=== PATIENT | male | born 1975 | race Caucasian/White ===

== ENCOUNTER 2016-06-09 16:34 | Emergency (ER) | payer BC, OTHER ==
[~2016-06-09] VITALS: Ht 172.7 cm; Wt 87.3 kg
[~2016-06-09 16:34] MED LIST: ALBU1AER9 INH; CLBPO15 TOP; CLON1TAB3 PO; HEROIN
[2016-06-09 16:44] VITALS: TEMP 36.4; Ht 172.7 cm; Wt 87.3 kg
[2016-06-09] MEDS ORDERED: ALBUT/IPRATROP 3MG/0.5MG NEB 3 ML VIAL INH STA (17:26)
[2016-06-09] MEDS ORDERED: SODIUM CHLORIDE 0.9% 1000ML 1,000 ML IV STA ×2 (17:26→20:01)
[2016-06-09] MEDS ORDERED: SODIUM CHLORIDE 0.9% 1000ML 500 ML IV STA (17:26)
--- NOTE | 2016-06-09 17:37 | EMERGENCY ROOM VISIT NOTE ---
History Report prepared by Robson: Isis Phillips Under the Supervision of: Dr. Gaston Conrad M.D. First contact with patient: 17:19 Chief Complaint: SYNCOPE Stated Complaint: LUNG INFECTION, SWEATING, CONFUSION, BLACK OUTS Nursing Triage Summary: Pt states, "I passed out today at 1300, woke up with sweats. I know I have a lung infection. I am coughing up yellow and my sinuses. I have tons of fatigue and have had confusion. It's been getting progressively worse. I have a lot of neuropathic pain. I have seen Dr. Plascencia about spinal issues, but the insurance denied the MRI. The infection my body has is spreading to my blood." History of Present Illness The patient is a 40 year old male who presents to the Emergency Room with complaints of a persistent, productive cough for the past week. He currently rates his discomfort as a 7/10 in severity. The patient states that he thought he developed the cold that was going around approximately one week ago. He states that over the past four days his symptoms have progressively worsened. He additionally associates increased fatigue and diaphoresis. The patient notes that around 1300 today he had a syncopal episode and states that he was very confused after the event. He denies any report of seizure like activity after the episode and denies any fall. The patient denies any recorded fever. He notes that he has had pneumonia in the past. The patient notes a history of hepatitis C and asthma. He states that two weeks ago he was placed on Prednisone for spinal problems by Dr. Robison--this was prescribed for his neck pain. He notes that he developed a rash after starting the Prednisone. The patient notes that he is currently on amoxicillin--started 3 days ago. Source of History: patient Onset: past week Position: other (global) Symptom Intensity: 7/10 Quality: other (cough) Timing: other (persistent) Associated Symptoms: + diaphoresis, + fatigue, No fevers Note: Associated Symptoms: confusion, syncopal episode Review of Systems See HPI for pertinent positives & negatives. A total of 10 systems reviewed and were otherwise negative. Past Medical & Surgical Medical Problems: (1) Anemia Nos (2) Anxiety (3) Asthma, Unspecified (4) Depressed (5) Hodgkin's lymphoma (6) Impetigo Surgical Problems: (1) S/P ACL surgery Family History Cancer Diabetes mellitus Social History Smoking Status: Current Every Day Smoker Alcohol Use: none Drug Use: heroin Marital Status: in relationship Housing Status: lives with significant other Occupation Status: employed Current/Historical Medications Scheduled Amoxicillin (Amoxil), 500 MG PO TID Doxycycline Hyclate (Vibramycin), 100 MG PO BID Gabapentin (Gabapentin), 600 MG PO TID Scheduled PRN [Proair], 2 PUFF INH Q4 PRN for Shortness of Breath Allergies Coded Allergies: Grass (Verified Allergy, Intermediate, SNEEZING, RUNNY NOSE, ITCHY EYES, 04/08/16) Horse Allergy (Verified Allergy, Unknown, UNKNOWN, 04/08/16) ALLERGY TO HORSE HAIR Molds and Smuts (Verified Allergy, Unknown, UNKNOWN, 04/08/16) Physical Exam Vital Signs Date Time Temp Pulse Resp B/P Pulse Ox O2 Delivery O2 Flow Rate FiO2 06/09/16 22:03 80 18 104/59 97 06/09/16 21:05 83 16 102/63 97 Room Air 06/09/16 20:00 86 16 99/70 96 Room Air 06/09/16 19:04 92 16 108/67 95 Room Air 06/09/16 18:33 90 06/09/16 18:30 95 18 106/70 100 Nebulizer 06/09/16 16:44 36.4 101 18 113/79 98 Room Air Physical Exam GENERAL: Patient is in no acute distress. HEENT: No acute trauma, normocephalic atraumatic, mucous membranes moist, no nasal congestion, no scleral icterus. NECK: No stridor, no adenopathy, no meningismus, trachea is midline. LUNGS: Scattered wheezes bilaterally, mostly on the right. Breath sounds are equal but somewhat diminished bilaterally. No rhonchi or respiratory distress. HEART: Without murmurs gallops or rubs, regular rate and rhythm. ABDOMEN: Soft, nontender, bowel sounds positive, no hernias, no peritonitis. EXTREMITIES: No cyanosis or edema, full range of motion of all the joints without pain or difficulty, no signs for acute trauma. NEUROLOGIC: Oriented x 3, no acute motor or sensory deficits, no focal weakness. SKIN: No jaundice, no diaphoresis. Medical Decision & Procedures ER Provider Diagnostic Interpretation: X ray results and stated below per my interpretation and radiologist interpretation. Other radiology results and stated below per my review and radiologist interpretation: CT SCAN OF THE BRAIN WITHOUT IV CONTRAST CLINICAL HISTORY: Fall. Change in mental status. COMPARISON STUDY: CT of the brain dated 04/02/2016. TECHNIQUE: Unenhanced axial CT scan of the brain is performed from the vertex to the skull base. Automated dose control exposure was utilized. CT DOSE: Reported separately under the concurrently performed CT scan of the cervical spine. FINDINGS: Brain parenchyma: The brain parenchyma is normal in appearance. There is no hemorrhage, mass effect, or evidence of acute territorial ischemia by CT criteria. Lucas-white matter is preserved. No extra-axial fluid collection is seen. Ventricles, sulci, cisterns: Normal in configuration. Intracranial vasculature: Mild mucosal thickening is seen within the right frontal sinus and the ethmoid sinuses. The remaining visualized intracranial vasculature at the skull base is normal in appearance. Calvarium: There is no depressed calvarial fracture. Sinuses and mastoids: The visualized paranasal sinuses are clear. The mastoid air cells are well pneumatized. Orbits: The bony orbits are grossly intact. IMPRESSION: No acute intracranial abnormality. Electronically signed by: Gaston Dyer M.D. 06/09/2016 7:02 PM Dictated Date/Time: 06/09/2016 7:00 PM SINGLE VIEW CHEST CLINICAL HISTORY: Fever. Sepsis. FINDINGS: 2 AP, portable, upright chest radiographs are compared to study dated 03/08/2016. Correlation is made with chest CT dated 03/24/2016. The examination is degraded by portable technique and patient rotation. The cardiomediastinal silhouette is unremarkable. Mild diffuse interstitial thickening is noted. No airspace consolidation or large pleural effusion is identified. No pneumothorax is seen. The bony thorax is grossly intact. IMPRESSION: There is diffuse interstitial thickening suggesting an infectious/inflammatory pneumonitis. No lobar consolidation or pleural effusion is seen. Electronically signed by: Gaston Dyer M.D. 06/09/2016 6:15 PM Dictated Date/Time: 06/09/2016 6:[address] SCAN OF THE CERVICAL SPINE CLINICAL HISTORY: Fall. Neck pain. COMPARISON STUDY: CT scan of cervical spine dated 04/02/2016. TECHNIQUE: CT scan of the cervical spine is performed from the skull base to the upper thoracic spine. Images are reviewed in the axial, sagittal, and coronal planes. IV contrast was not administered for this examination. CT DOSE: 998.39 mGy.cm FINDINGS: Skeletal structures: The skeletal structures are well mineralized. There is no evidence of fracture or subluxation involving the cervical spine. Vertebral body height and alignment are maintained. There is straightening of the cervical lordosis with mild reversal centered at C5. The odontoid process and lateral masses are intact. The atlantoaxial articulation is preserved. The spinous processes appear intact. Small anterior osteophytes are seen at C5-C6. Intervertebral discs: There is moderate degenerative disc space narrowing at C5-C6. The remaining disc spaces appear maintained. Central canal: A posterior disc osteophyte complex at C5-C6 may contribute to mild acquired compromise of the central canal. Soft tissues: The prevertebral and paraspinous soft tissues are within normal limits. Calvarium: The visualized calvarium at the skull base appears intact. Brain parenchyma: Partially visualized brain parenchyma the skull base is within normal limits. Sinuses and mastoids: The visualized paranasal sinuses are clear. The mastoid air cells are well pneumatized. Lung apices: Clear as visualized. IMPRESSION: There is no evidence of fracture or subluxation involving the cervical spine. Electronically signed by: Gaston Dyer M.D. 06/09/2016 7:04 PM Dictated Date/Time: 06/09/2016 6:59 PM Laboratory Results 06/09/16 18:05 Red Blood Count 5.70, Mean Corpuscular Volume 85.6, Mean Corpuscular Hemoglobin 28.9, Mean Corpuscular Hemoglobin Concent 33.8, Mean Platelet Volume 8.9, Neutrophils (%) (Auto) 68.6, Lymphocytes (%) (Auto) 21.1, Monocytes (%) (Auto) 8.5, Eosinophils (%) (Auto) 1.1, Basophils (%) (Auto) 0.3, Neutrophils # (Auto) 15.05, Lymphocytes # (Auto) 4.61, Monocytes # (Auto) 1.85, Eosinophils # (Auto) 0.23, Basophils # (Auto) 0.06 06/09/16 18:05 Test 06/09/16 18:00 06/09/16 18:05 06/09/16 18:36 06/09/16 19:25 Urine Color DK YELLOW Urine Appearance CLEAR (CLEAR) Urine pH 6.0 (4.5-7.5) Urine Specific [place] 1.024 (1.000-1.030) Urine Protein 1+ (NEG) Urine Glucose (UA) NEG (NEG) Urine Ketones TRACE (NEG) Urine Occult Blood NEG (NEG) Urine Nitrite NEG (NEG) Urine Bilirubin NEG (NEG) Urine Urobilinogen NEG (NEG) Urine Leukocyte Esterase NEG (NEG) Urine WBC (Auto) 5-10 /hpf (0-5) Urine RBC (Auto) 0-4 /hpf (0-4) Urine Hyaline Casts (Auto) 5-10 /lpf (0-5) Urine Epithelial Cells (Auto) >30 /lpf (0-5) Urine Bacteria (Auto) NEG (NEG) Urine Renal Epithelial Cells /lpf (0-5) Urine Pathogenic Casts See comments /lpf (0) White Blood Count 21.88 K/uL (4.8-10.8) Red Blood Count 5.70 M/uL (4.7-6.1) Hemoglobin 16.5 g/dL (14.0-18.0) Hematocrit 48.8 % (42-52) Mean Corpuscular Volume 85.6 fL (80-100) Mean Corpuscular Hemoglobin 28.9 pg (25-34) Mean Corpuscular Hemoglobin Concent 33.8 g/dl (32-36) Platelet Count 284 K/uL (130-400) Mean Platelet Volume 8.9 fL (7.4-10.4) Neutrophils (%) (Auto) 68.6 % Lymphocytes (%) (Auto) 21.1 % Monocytes (%) (Auto) 8.5 % Eosinophils (%) (Auto) 1.1 % Basophils (%) (Auto) 0.3 % Neutrophils # (Auto) 15.05 K/uL (1.4-6.5) Lymphocytes # (Auto) 4.61 K/uL (1.2-3.4) Monocytes # (Auto) 1.85 K/uL (0.11-0.59) Eosinophils # (Auto) 0.23 K/uL (0-0.5) Basophils # (Auto) 0.06 K/uL (0-0.2) RDW Standard Deviation 52.6 fL (36.4-46.3) RDW Coefficient of Variation 16.8 % (11.5-14.5) Immature Granulocyte % (Auto) 0.4 % Immature Granulocyte # (Auto) 0.08 K/uL (0.00-0.02) Erythrocyte Sedimentation Rate 57 mm/hr (0-14) Anion Gap 12.0 mmol/L (3-11) Est Creatinine Clear Calc Drug Dose 67.2 ml/min Estimated GFR () 62.4 Estimated GFR (Non- 53.9 BUN/Creatinine Ratio 11.8 (10-20) Calcium Level 8.8 mg/dl (8.5-10.1) Total Bilirubin 0.4 mg/dl (0.2-1) Aspartate Amino Transf (AST/SGOT) 15 U/L (15-37) Alanine Aminotransferase (ALT/SGPT) 29 U/L (12-78) Alkaline Phosphatase 70 U/L (45-117) Troponin I < 0.015 ng/ml (0-0.045) Total Protein 9.0 gm/dl (6.4-8.2) Albumin 4.0 gm/dl (3.4-5.0) Globulin 5.0 gm/dl (2.5-4.0) Albumin/Globulin Ratio 0.8 (0.9-2) Thyroid Stimulating Hormone (TSH) 9.120 uIu/ml (0.300-4.500) Free Thyroxine 1.35 ng/dl (0.80-1.60) Influenza Type A Antigen Neg for Influ A (NEG) Influenza Type B Antigen Neg for Influ B (NEG) Bedside Lactic Acid Venous 1.17 mmol/L (0.90-1.70) Laboratory results reviewed by me. Medications Administered Medications (Trade) Dose Ordered Sig/Yareli Route Start Time Stop Time Status Last Admin Dose Admin Sodium Chloride 500 ml @ 999 mls/hr Q31M STAT IV 06/09/16 17:26 06/09/16 17:56 DC 06/09/16 18:28 999 MLS/HR Sodium Chloride (Nss 1000ml) 1,000 ml @ 200 mls/hr Q5H STAT IV 06/09/16 17:26 06/09/16 22:23 DC 06/09/16 18:28 200 MLS/HR Albuterol/ Ipratropium 3 ml 3 ml NOW STAT INH 06/09/16 17:26 06/09/16 17:31 DC 06/09/16 18:27 3 ML Sodium Chloride 500 ml @ 999 mls/hr Q31M STAT IV 06/09/16 19:05 06/09/16 19:35 DC 06/09/16 19:16 999 MLS/HR Sodium Chloride (Nss 1000ml) 1,000 ml @ 999 mls/hr Q1H1M STAT IV 06/09/16 20:01 06/09/16 21:01 DC 06/09/16 20:10 999 MLS/HR Ceftriaxone Sodium (Rocephin Inj) 1 gm NOW STAT IV 06/09/16 20:01 06/09/16 20:03 DC 06/09/16 20:10 1 GM Doxycycline Hyclate (Vibramycin Cap) 100 mg ONE ONCE PO 06/09/16 20:15 06/09/16 20:16 DC 06/09/16 20:10 100 MG ECG Indication: SOB/dyspnea Rate (beats per minute): 95 Rhythm: normal sinus Findings: no acute ischemic change, no ectopy ED Course 1719: The patient was evaluated in room B4B. A complete history and physical exam was performed. 1725: Ordered Duoneb 3 ml INH, Sodium Chloride 1000 ml @ 200 mls/hr IV, Sodium Chloride 500 ml @ 999 mls/hr IV. 1904: Ordered Sodium Chloride 500 ml @ 999 mls/hr IV. 1953: I reevaluated the patient and he is feeling better. I discussed the exam findings and I discussed the treatment plan. He is going to receive more IV fluids and an antibiotic and will be ready to go home after. 2000: Ordered Rocephin Inj 1 gm IV, Sodium Chloride 1000 ml @ 999 mls/hr IV. 2015: Ordered Vibramycin Cap 100 mg PO. Medical Decision The patient is a 40 year old male who presents to the ED with complaints of a persistent productive cough. Differential diagnoses considered include influenza, pneumonia, bronchitis, anemia, electrolyte imbalance, renal failure, dysrhythmia, dehydration, intracranial bleed, thyroid disorder. There is a significant leukocytosis at 21,000, this is likely consistent with infection and his recent steroid use. No worrisome anemia. Blood cultures have been ordered and are pending. Renal panel testing shows some dehydration and some mild acute renal insufficiency. No significant electrolyte abnormality requiring emergent correction. There was no hepatitis. The patient 's TSH was slightly high, the T4 level though was normal. Urinalysis shows dehydration, no obvious infection. Brain CT shows no acute bleed or mass effect. C-spine CT shows some arthritis, no acute fracture. Chest film does not show focal pneumonia but there was some diffuse congestion noted. No cardiomegaly or pneumothorax. EKG shows a sinus rhythm, no acute ischemia. Cardiac enzyme testing times one is not consistent with acute cardiac injury. Lactic acid level is not elevated making sepsis less likely. Influenza testing was negative. The patient received over 2 L of IV saline for hydration. He was given a DuoNeb , IV ceftriaxone and oral doxycycline. The patient is doing well, he feels markedly better, he does want to be discharged home if at all possible. He will be discharged on doxycycline twice a day for 10 days. He will use his albuterol MDI frequently for the bronchospasm, rest, hydration, Tylenol were suggested. He will see his doctor in follow-up and has agreed to return here for worsening breathing or if not improving. I do think he has pneumonia. Impression Primary Impression: Pneumonia Additional Impressions: Dehydration Syncope Scribe Attestation The scribe's documentation has been prepared under my direction and personally reviewed by me in its entirety. I confirm that the note above accurately reflects all work, treatment, procedures, and medical decision making performed by me. Departure Information Dispostion Home / Self-Care Prescriptions Doxycycline Hyclate (VIBRAMYCIN) 100 Mg Cap 100 MG PO BID for 10 Days, #20 CAP Prov: Gaston Conrad M.D. 06/09/16 Referrals Magdiel Cintron M.D. (PCP) Patient Instructions My [facility] Additional Instructions albuterol inhaler 3 puffs every 4 hours fluids rest tylenol for fever and aches stop the amoxicillin doxycycline 2x per day for 10 days follow with papo kim--call in the am for an appt return if feeling worse or if not improving as we discussed Problem Qualifiers
--- NOTE | 2016-06-09 18:16 | DIAGNOSTIC IMAGING REPORT ---
SINGLE VIEW CHEST CLINICAL HISTORY: Fever. Sepsis. FINDINGS: 2 AP, portable, upright chest radiographs are compared to study dated 03/08/2016. Correlation is made with chest CT dated 03/24/2016. The examination is degraded by portable technique and patient rotation. The cardiomediastinal silhouette is unremarkable. Mild diffuse interstitial thickening is noted. No airspace consolidation or large pleural effusion is identified. No pneumothorax is seen. The bony thorax is grossly intact. IMPRESSION: There is diffuse interstitial thickening suggesting an infectious/inflammatory pneumonitis. No lobar consolidation or pleural effusion is seen. Electronically signed by: Gaston Dyer M.D. 06/09/2016 6:15 PM Dictated Date/Time: 06/09/2016 6:13 PM
[2016-06-09 18:24] LABS: BASO % 0.3 %; BASO ABS # 0.06 K/uL (0-0.2); COMPLETE YES; EOS % 1.1 %; HEMATOCRIT 48.8 % (42-52); IG% 0.4 %; LYMPH % 21.1 %; LYMPH ABS # 4.61 K/uL (1.2-3.4); MEAN CELL VOLUME 85.6 fL (80-100); MEAN CORPUSCULAR HEMOGLOBIN 28.9 pg (25-34); MEAN CORPUSCULAR HGB CONC 33.8 g/dl (32-36); MEAN PLATELET VOLUME 8.9 fL (7.4-10.4); MONO % 8.5 %; NEUT % 68.6 %; PLATELET COUNT 284 K/uL (130-400); WHITE BLOOD COUNT 21.88 K/uL (4.8-10.8)
[2016-06-09 18:42] LABS: ALT/SGPT 29 U/L (12-78); AST/SGOT 15 U/L (15-37); BLOOD UREA NITROGEN 19 mg/dl (7-18); BUN/CREATININE RATIO 11.8 (10-20); CALCIUM 8.8 mg/dl (8.5-10.1); CARBON DIOXIDE 25 mmol/L (21-32); CHLORIDE 99 mmol/L (98-107); GLUCOSE 120 mg/dl (70-99); POTASSIUM 4.2 mmol/L (3.5-5.1); SODIUM 136 mmol/L (136-145)
[2016-06-09] MEDS ORDERED: NRN600 PO (18:43)
[2016-06-09] MEDS ORDERED: PROAIR INH (18:43)
[2016-06-09] MEDS ORDERED: AMOX500C3 PO (18:43)
[2016-06-09 18:53] LABS: ALB/GLOB RATIO 0.8 (0.9-2); ALKALINE PHOSPHATASE 70 U/L (45-117)
--- NOTE | 2016-06-09 19:03 | DIAGNOSTIC IMAGING REPORT ---
CT SCAN OF THE BRAIN WITHOUT IV CONTRAST CLINICAL HISTORY: Fall. Change in mental status. COMPARISON STUDY: CT of the brain dated 04/02/2016. TECHNIQUE: Unenhanced axial CT scan of the brain is performed from the vertex to the skull base. Automated dose control exposure was utilized. CT DOSE: Reported separately under the concurrently performed CT scan of the cervical spine. FINDINGS: Brain parenchyma: The brain parenchyma is normal in appearance. There is no hemorrhage, mass effect, or evidence of acute territorial ischemia by CT criteria. Lucas-white matter is preserved. No extra-axial fluid collection is seen. Ventricles, sulci, cisterns: Normal in configuration. Intracranial vasculature: Mild mucosal thickening is seen within the right frontal sinus and the ethmoid sinuses. The remaining visualized intracranial vasculature at the skull base is normal in appearance. Calvarium: There is no depressed calvarial fracture. Sinuses and mastoids: The visualized paranasal sinuses are clear. The mastoid air cells are well pneumatized. Orbits: The bony orbits are grossly intact. IMPRESSION: No acute intracranial abnormality. Electronically signed by: Gaston Dyer M.D. 06/09/2016 7:02 PM Dictated Date/Time: 06/09/2016 7:00 PM
[2016-06-09] MEDS ORDERED: SODIUM CHLORIDE 0.9% 500ML 500 ML IV STA (19:05)
--- NOTE | 2016-06-09 19:06 | DIAGNOSTIC IMAGING REPORT ---
CT SCAN OF THE CERVICAL SPINE CLINICAL HISTORY: Fall. Neck pain. COMPARISON STUDY: CT scan of cervical spine dated 04/02/2016. TECHNIQUE: CT scan of the cervical spine is performed from the skull base to the upper thoracic spine. Images are reviewed in the axial, sagittal, and coronal planes. IV contrast was not administered for this examination. CT DOSE: 998.39 mGy.cm FINDINGS: Skeletal structures: The skeletal structures are well mineralized. There is no evidence of fracture or subluxation involving the cervical spine. Vertebral body height and alignment are maintained. There is straightening of the cervical lordosis with mild reversal centered at C5. The odontoid process and lateral masses are intact. The atlantoaxial articulation is preserved. The spinous processes appear intact. Small anterior osteophytes are seen at C5-C6. Intervertebral discs: There is moderate degenerative disc space narrowing at C5-C6. The remaining disc spaces appear maintained. Central canal: A posterior disc osteophyte complex at C5-C6 may contribute to mild acquired compromise of the central canal. Soft tissues: The prevertebral and paraspinous soft tissues are within normal limits. Calvarium: The visualized calvarium at the skull base appears intact. Brain parenchyma: Partially visualized brain parenchyma the skull base is within normal limits. Sinuses and mastoids: The visualized paranasal sinuses are clear. The mastoid air cells are well pneumatized. Lung apices: Clear as visualized. IMPRESSION: There is no evidence of fracture or subluxation involving the cervical spine. Electronically signed by: Gaston Dyer M.D. 06/09/2016 7:04 PM Dictated Date/Time: 06/09/2016 6:59 PM
[2016-06-09 19:28] LABS: URINE APPEARANCE CLEAR (CLEAR); URINE BILIRUBIN NEG (NEG); URINE COLOR DK YELLOW; URINE EPITHELIAL CELL AUTO >30 /lpf (0-5); URINE NITRITE NEG (NEG); URINE SPECIFIC GRAVITY 1.024 (1.000-1.030); UROBILINOGEN NEG (NEG); ZZUR CULT IF INDIC CLEAN CATCH NO
[2016-06-09 19:43] LABS: MANUAL MICROSCOPIC REQUIRED? NO; REVIEW REQ? YES
[2016-06-09] MEDS ORDERED: CEFTRIAXONE SOD INJ 1 GM ADDVIAL IV STA (20:01)
[2016-06-09] MEDS ORDERED: DOXYCYCLINE HYCLATE 100 MG CAP PO ONE (20:15)
[2016-06-09] MEDS ORDERED: DOXY100C PO (21:38)
[2016-06-09 22:03] VITALS: BP 104/59; PULSE 80; O2SAT 97
== END 2016-06-09 22:05 | disposition home or self-care (01) ==
LOC: C.EDB 16:35
DX: J18.9 Pneumonia, unspecified organism (principal); E86.0 Dehydration; R55 Syncope and collapse; R61 Generalized hyperhidrosis; F17.210 Nicotine dependence, cigarettes, uncomplicated

== ENCOUNTER → 2016-07-08 | Outpatient (CLI) | payer BC ==
[~2016-07-08] MED LIST changes: -ALBU1AER9 INH; +AMOX500C3 PO; +BCTROWC EXT; -CLBPO15 TOP; -CLON1TAB3 PO; -HEROIN; +NRN600 PO; +PROAIR INH
--- NOTE | 2016-07-08 18:44 | DIAGNOSTIC IMAGING REPORT ---
CHEST 2 VIEWS ROUTINE CLINICAL HISTORY: PNEUMONIA NON-HODGKIN'S LYMPHOMA COMPARISON STUDY: June 09, 2016 FINDINGS: The cardiac and mediastinal contours are normal. There is no evidence of focal pulmonary consolidation. There is no evidence of failure. No pleural effusions are visualized.[ There is subtle reticular nodularity of the mid upper lung zones. This finding remains stable to slightly improved. IMPRESSION: Stable to slightly improved reticular nodularity of the mid upper lung zones. No acute findings. Electronically signed by: Cuate Chacko M.D. 07/08/2016 6:42 PM Dictated Date/Time: 07/08/2016 6:40 PM
[2016-07-08 18:49] LABS: BASO % 0.4 %; BASO ABS # 0.05 K/uL (0-0.2); COMPLETE YES; EOS % 1.7 %; HEMATOCRIT 44.9 % (42-52); IG% 0.2 %; LYMPH % 29.8 %; LYMPH ABS # 3.81 K/uL (1.2-3.4); MEAN CELL VOLUME 86.8 fL (80-100); MEAN CORPUSCULAR HEMOGLOBIN 29.4 pg (25-34); MEAN CORPUSCULAR HGB CONC 33.9 g/dl (32-36); MEAN PLATELET VOLUME 9.2 fL (7.4-10.4); NEUT % 59.9 %; PLATELET COUNT 274 K/uL (130-400); RED BLOOD COUNT 5.17 M/uL (4.7-6.1)
[2016-07-08 18:51] LABS: ESTIMATED AVERAGE GLUCOSE 117 mg/dl; HA1C FLAG Normal (Normal)
[2016-07-08 18:58] LABS: INR 0.9 (0.9-1.1)
[2016-07-08 19:18] LABS: ALT/SGPT 23 U/L (12-78); AST/SGOT 29 U/L (15-37); BLOOD UREA NITROGEN 13 mg/dl (7-18); BUN/CREATININE RATIO 11.5 (10-20); CALCIUM 8.5 mg/dl (8.5-10.1); CARBON DIOXIDE 29 mmol/L (21-32); CHLORIDE 107 mmol/L (98-107); GLUCOSE 95 mg/dl (70-99); POTASSIUM 3.9 mmol/L (3.5-5.1); SODIUM 140 mmol/L (136-145); URIC ACID 6.8 mg/dl (2.6-7.2)
[2016-07-08 19:29] LABS: ALB/GLOB RATIO 0.9 (0.9-2); ALKALINE PHOSPHATASE 63 U/L (45-117)
[2016-07-13 07:40] LABS: HEPATITIS C RNA TMA QUAL Detected
[2016-07-13 16:26] LABS: ANTI-CENTROMERE AB <1.0 NEG AI (<1.0 NEG); ANTI-SS-A <1.0 NEG AI (<1.0 NEG); ANTI-SS-B <1.0 NEG AI (<1.0 NEG); DNA ds CRITHIDIA NEGATIVE (NEGATIVE); LIVER FIBR APOLIPOPROTEIN A-1 127 mg/dL (94-176); LIVER FIBROS ALPHA-2-MACROGLOB 137 mg/dL (106-279); LIVER FIBROSIS GGT 15 U/L (3-90); MICROSOMAL AB <1 IU/ML (<9); NECROINFLAMMATION ACT GRADE A0; NECROINFLAMMATION ACT SCORE 0.03; Sm Antibody <1.0 NEG AI (<1.0 NEG)
== END | disposition home or self-care (01) ==
LOC: C.RAD 17:31
PROVIDERS: ATTEND Physician Assistant
DX: J18.9 Pneumonia, unspecified organism (principal); S02.2XXA Fracture of nasal bones, initial encounter for closed fracture; X58.XXXA Exposure to other specified factors, initial encounter

== ENCOUNTER → 2016-07-12 | Outpatient (CLI) | payer BC ==
[2016-07-18 04:35] LABS: ANTI-CENTROMERE AB <1.0 NEG AI (<1.0 NEG); ANTI-SS-A <1.0 NEG AI (<1.0 NEG); ANTI-SS-B <1.0 NEG AI (<1.0 NEG); CARBOXY THC TO CREAT RATIO 87 NG/MG; CARBOXY THC UR GC/MS 123 NG/ML (CUTOFF=5); DNA ds CRITHIDIA NEGATIVE (NEGATIVE); HEPATITIS C VIRAL RNA BY PCR 223 IU/ML (<15); HEPATITIS C VIRAL RNA(LOG) PCR 2.35 LOG IU/ML (<1.18); LIVER FIBR APOLIPOPROTEIN A-1 138 mg/dL (94-176); LIVER FIBROS ALPHA-2-MACROGLOB 142 mg/dL (106-279); LIVER FIBROSIS GGT 14 U/L (3-90); MICROSOMAL AB 1 IU/ML (<9); NECROINFLAMMATION ACT GRADE A0; NECROINFLAMMATION ACT SCORE 0.07; Sm Antibody <1.0 NEG AI (<1.0 NEG); URCREATININE 138.3 MG/DL (>/= 20)
== END | disposition home or self-care (01) ==
LOC: C.LAB1850 13:54
PROVIDERS: ATTEND Physician Assistant
DX: S02.2XXA Fracture of nasal bones, initial encounter for closed fracture (principal); X58.XXXA Exposure to other specified factors, initial encounter

== ENCOUNTER → 2016-09-22 | Outpatient (CLI) | payer BC ==
[2016-09-22 20:07] LABS: THYROID STIMULATING HORMONE 2.35 uIu/ml (0.300-4.500)
== END ==
LOC: C.LAB 17:37
PROVIDERS: ATTEND Physician Assistant
DX: R94.6 Abnormal results of thyroid function studies (principal)

== ENCOUNTER → 2016-10-10 | Outpatient (CLI) | payer BC ==
--- NOTE | 2016-10-10 18:16 | DIAGNOSTIC IMAGING REPORT ---
CHEST 2 VIEWS ROUTINE CLINICAL HISTORY: Pneumonia. COMPARISON STUDY: Chest radiograph July 08, 2016. FINDINGS: There is no pneumothorax or pleural effusion. Cardiac size is normal. Mediastinal contours are normal. Upper lung predominant reticulonodular interstitial thickening is unchanged. There is no consolidation. Cardiac size is normal. Mediastinal contours are normal. IMPRESSION: 1. No change in upper lung predominant reticulonodular interstitial thickening. 2. No consolidation identified. Electronically signed by: Victor Manuel Tolbert M.D. 10/10/2016 6:15 PM Dictated Date/Time: 10/10/2016 6:14 PM
== END | disposition home or self-care (01) ==
LOC: C.RAD 16:11
PROVIDERS: ATTEND Physician Assistant
DX: J18.9 Pneumonia, unspecified organism (principal)

== ENCOUNTER → 2016-10-10 | Outpatient (CLI) | payer BC ==
[2016-10-10 17:19] LABS: HEMATOCRIT 45.3 % (42-52); MEAN CELL VOLUME 88.3 fL (80-100); MEAN CORPUSCULAR HEMOGLOBIN 29.6 pg (25-34); MEAN CORPUSCULAR HGB CONC 33.6 g/dl (32-36); MEAN PLATELET VOLUME 9.4 fL (7.4-10.4); PLATELET COUNT 285 K/uL (130-400); RED BLOOD COUNT 5.13 M/uL (4.7-6.1); WHITE BLOOD COUNT 11.84 K/uL (4.8-10.8)
[2016-10-10 17:35] LABS: MANUAL MICROSCOPIC REQUIRED? NO; REVIEW REQ? NO; URINE APPEARANCE CLEAR (CLEAR); URINE BILIRUBIN NEG (NEG); URINE COLOR YELLOW; URINE NITRITE NEG (NEG); URINE PH 6.5 (4.5-7.5); URINE SPECIFIC GRAVITY 1.024 (1.000-1.030); UROBILINOGEN NEG (NEG)
[2016-10-10 17:55] LABS: ALT/SGPT 73 U/L (12-78); AST/SGOT 30 U/L (15-37); BLOOD UREA NITROGEN 12 mg/dl (7-18); BUN/CREATININE RATIO 12.7 (10-20); CALCIUM 9.1 mg/dl (8.5-10.1); CARBON DIOXIDE 24 mmol/L (21-32); CHLORIDE 108 mmol/L (98-107); CREATININE 0.98 mg/dl (0.60-1.40); GLUCOSE 79 mg/dl (70-99); POTASSIUM 3.9 mmol/L (3.5-5.1); SODIUM 140 mmol/L (136-145)
[2016-10-10 18:00] LABS: BENZODIAZEPINE, URINE NEG (NEG); COCAINE,URINE NEG (NEG); PHENCYCLIDINE, URINE NEG (NEG)
[2016-10-10 18:06] LABS: ALB/GLOB RATIO 0.8 (0.9-2); ALKALINE PHOSPHATASE 63 U/L (45-117)
[2016-10-10 18:13] LABS: BASO % 0.6 %; BASO ABS # 0.07 K/uL (0-0.2); COMPLETE YES; IG% 0.2 %; LYMPH % 48.3 %; LYMPH ABS # 5.72 K/uL (1.2-3.4); MONO % 9.6 %; NEUT % 38.3 %
== END | disposition home or self-care (01) ==
LOC: C.CPL 16:16
PROVIDERS: ATTEND Psychiatry & Neurology Psychiatry
DX: J18.9 Pneumonia, unspecified organism (principal); F90.9 Attention-deficit hyperactivity disorder, unspecified type

== ENCOUNTER → 2016-11-24 | Outpatient (CLI) | payer BC ==
[~2016-11-24] MED LIST changes: +OPTIRAY 320 IV PRN
--- NOTE | 2016-11-24 15:04 | DIAGNOSTIC IMAGING REPORT ---
(CHEST) THORAX WITH CT DOSE: HISTORY: Lymphoma HODGKIN DISEASE TECHNIQUE: Multiaxial CT images of the chest were performed following the intravenous administration of contrast. A dose lowering technique was utilized adhering to the principles of ALARA. COMPARISON: 03/24/2016 FINDINGS: The lungs are clear. The mediastinal vascular structures are within normal limits. No mediastinal or hilar lymphadenopathy. No pleural effusion or pneumothorax. Limited views of the upper abdomen demonstrate a normal liver and spleen. IMPRESSION: No significant abnormality identified within the chest. Study continues to improve compared to the prior exam. The above report was generated using voice recognition software. It may contain grammatical, syntax or spelling errors. Electronically signed by: Mehrdad Schroeder M.D. 11/24/2016 3:03 PM Dictated Date/Time: 11/24/2016 3:00 PM
--- NOTE | 2016-11-24 15:08 | DIAGNOSTIC IMAGING REPORT ---
CT NECK WITH INTRAVENOUS CONTRAST HISTORY: HODGKIN DISEASE TECHNIQUE: Multiaxial CT images of the neck were performed following the use of intravenous contrast. COMPARISON STUDY: Cervical spine CT 06/09/2016. No CT 03/24/2016. FINDINGS: The visualized brain parenchyma and orbits are unremarkable. The major mucosal airway surfaces are intact. The epiglottis and prevertebral soft tissues are normal in thickness. The thyroid gland enhances normally. The lung apices are clear. No suspicious lytic or blastic osseous lesions. There are surgical clips within the base of the left neck. Paranasal sinuses and mastoid air cells are clear. The major cervical vessels enhance normally. Multiple prominent left cervical lymph nodes or possibly change in size. Dominant lymph node within the base of the left neck measures 14 x 6 mm and 12 x 8 mm. The right cervical lymph nodes are subcentimeter in short axis diameter. The parotid and submandibular glands are symmetric. IMPRESSION: No significant change in the borderline enlarged left cervical lymph nodes. No new or enlarging cervical lymph nodes identified. Electronically signed by: Leon Espinoza M.D. 11/24/2016 3:07 PM Dictated Date/Time: 11/24/2016 2:58 PM
--- NOTE | 2016-11-24 15:18 | DIAGNOSTIC IMAGING REPORT ---
CT SCAN OF THE ABDOMEN AND PELVIS WITH IV CONTRAST CLINICAL HISTORY: Hodgkin's disease. COMPARISON STUDY: Abdominal CT dated 03/24/2016. PET/CT dated 02/23/2015. TECHNIQUE: Following the IV administration of 119 cc of Optiray 320, CT scan of the abdomen and pelvis is performed from the lung bases to the proximal femora. Images are reviewed in the axial, sagittal, and coronal planes. IV contrast was administered without complication. Automated dose control exposure was utilized. The examination is degraded by streak artifact from the patient's arms which could not be elevated above the abdomen. A dose lowering technique was utilized adhering to the principles of ALARA. CT DOSE: 2130.44 mGy.cm FINDINGS: Lung bases: The heart is normal in size and without pericardial effusion. The lung bases are clear. Liver: The contrast-enhanced liver is normal in size, contour, and attenuation. There is no intrahepatic biliary ductal dilatation. The hepatic veins and portal veins are patent. Gallbladder: Unremarkable. Spleen: Normal in size and attenuation, measuring 9.4 cm in length. Pancreas: Unremarkable. Adrenal glands: Unremarkable. Kidneys: The contrast enhanced kidneys are normal in size and without hydronephrosis. The kidneys enhance symmetrically. Abdominal vasculature: The abdominal aorta is normal in course and caliber. Bowel: The small bowel and colon are normal in course and caliber. The appendix is well-visualized and normal. Peritoneum: There is no intraperitoneal free air or abdominal ascites. There is a small fat-containing umbilical hernia. Lymphadenopathy: Prominent retroperitoneal lymph nodes are similar to previous and measure up to 10 mm in short axis (left periaortic region image #173). Prominent upper abdominal lymph nodes are also similar to previous. A portacaval node on image #93 measures 11 mm in short axis. A noted in the abbey hepatis on image #101 measures 1.0 cm in short axis. No progressive lymphadenopathy is seen. There is no mesenteric, pelvic sidewall, or inguinal lymphadenopathy. Pelvic viscera: The bladder, prostate, and seminal vesicles are normal as imaged. Skeletal structures: No lytic or blastic lesions are seen. IMPRESSION: 1. No progressive lymphadenopathy is identified and there has been no significant change from 03/24/[address] or the 02/23/2015 PET examination. 2. Prominent upper abdominal and retroperitoneal lymph nodes are are indeterminant and similar to prior studies. 3. The spleen is normal in size. 4. No infectious or inflammatory findings are seen in the abdomen or pelvis. Electronically signed by: Gaston Dyer M.D. 11/24/2016 3:17 PM Dictated Date/Time: 11/24/2016 3:11 PM
[2016-11-24 16:22] LABS: HEMATOCRIT 42.4 % (42-52); MEAN CELL VOLUME 87.2 fL (80-100); MEAN CORPUSCULAR HEMOGLOBIN 30.5 pg (25-34); MEAN CORPUSCULAR HGB CONC 34.9 g/dl (32-36); MEAN PLATELET VOLUME 9.9 fL (7.4-10.4); PLATELET COUNT 229 K/uL (130-400); RED BLOOD COUNT 4.86 M/uL (4.7-6.1); WHITE BLOOD COUNT 9.62 K/uL (4.8-10.8)
[2016-11-24 16:23] LABS: BASO % 0.4 %; BASO ABS # 0.04 K/uL (0-0.2); COMPLETE YES; EOS % 2.9 %; IG% 0.4 %; LYMPH % 37.3 %; LYMPH ABS # 3.59 K/uL (1.2-3.4); MONO % 11.1 %; NEUT % 47.9 %; PLT ESTIMATE NORMAL
[2016-11-24 16:43] LABS: ALB/GLOB RATIO 0.9 (0.9-2); ALKALINE PHOSPHATASE 58 U/L (45-117); ALT/SGPT 52 U/L (12-78); AST/SGOT 33 U/L (15-37); BLOOD UREA NITROGEN 11 mg/dl (7-18); BUN/CREATININE RATIO 12.3 (10-20); CALCIUM 8.6 mg/dl (8.5-10.1); CARBON DIOXIDE 25 mmol/L (21-32); CHLORIDE 105 mmol/L (98-107); CREATININE 0.93 mg/dl (0.60-1.40); GLUCOSE 72 mg/dl (70-99); POTASSIUM 4.3 mmol/L (3.5-5.1); SODIUM 136 mmol/L (136-145)
== END | disposition home or self-care (01) ==
LOC: C.CTS 14:21
PROVIDERS: ATTEND Internal Medicine Hematology & Oncology
DX: C81.71 Other Hodgkin lymphoma, lymph nodes of head, face, and neck (principal)

== ENCOUNTER → 2016-12-02 | Outpatient (CLI) | payer BC ==
[~2016-12-02] MED LIST changes: -OPTIRAY 320 IV PRN
--- NOTE | 2016-12-02 16:27 | DIAGNOSTIC IMAGING REPORT ---
CHEST 2 VIEWS ROUTINE CLINICAL HISTORY: 41 years-old Male presenting with preoperative exam, cough, wheezing and shortness of breath. TECHNIQUE: PA and lateral views of the chest were obtained. COMPARISON: 10/10/2016. FINDINGS: Cardiomediastinal silhouette normal. Previously noted reticulonodular opacities in the upper lungs are minimally apparent. No new focal infiltrate. No pleural effusion or pneumothorax. Suggestion of mild bronchial wall thickening. Osseous structures normal. Upper abdomen normal. IMPRESSION: 1. Stable subtle upper lung predominant reticulonodular opacities. No new focal infiltrate. 2. Mild bronchial wall thickening may be present, which could suggest reactive airways disease or bronchiolitis. Electronically signed by: Magdiel Valdivia M.D. 12/02/2016 4:25 PM Dictated Date/Time: 12/02/2016 4:23 PM
== END | disposition home or self-care (01) ==
LOC: C.RAD 16:06
PROVIDERS: ATTEND Internal Medicine Hematology & Oncology
DX: C81.71 Other Hodgkin lymphoma, lymph nodes of head, face, and neck (principal)

== ENCOUNTER 2017-01-06 11:28 | Emergency (ER) | payer BC ==
[~2017-01-06] VITALS: Ht 172.7 cm; Wt 85.0 kg
[~2017-01-06 11:28] MED LIST changes: -BCTROWC EXT
[2017-01-06 11:30] VITALS: TEMP 36.4; Ht 172.7 cm; Wt 85.0 kg
[2017-01-06 14:36] LABS: BASO ABS # 0.06 K/uL (0-0.2); COMPLETE YES; EOS % 4.5 %; IG% 0.2 %; LYMPH % 34.6 %; LYMPH ABS # 2.17 K/uL (1.2-3.4); MEAN CORPUSCULAR HEMOGLOBIN 29.1 pg (25-34); MEAN CORPUSCULAR HGB CONC 33.5 g/dl (32-36); MEAN PLATELET VOLUME 9.2 fL (7.4-10.4); MONO % 16.1 %; NEUT % 43.6 %; PLATELET COUNT 199 K/uL (130-400); WHITE BLOOD COUNT 6.27 K/uL (4.8-10.8)
[2017-01-06 14:53] LABS: BUN/CREATININE RATIO 9.9 (10-20); CALCIUM 8.3 mg/dl (8.5-10.1); CREATININE 1.1 mg/dl (0.60-1.40)
[2017-01-06 14:56] LABS: ALB/GLOB RATIO 0.8 (0.9-2)
[2017-01-06 15:34] LABS: BENZODIAZEPINE, URINE NEG (NEG); COCAINE,URINE NEG (NEG); PHENCYCLIDINE, URINE NEG (NEG)
[2017-01-06 15:51] VITALS: BP 112/61; PULSE 79; O2SAT 98
[2017-01-06 15:52] LABS: MANUAL MICROSCOPIC REQUIRED? NO; REVIEW REQ? NO; URINE APPEARANCE CLEAR (CLEAR); URINE BILIRUBIN NEG (NEG); URINE COLOR DK YELLOW; URINE NITRITE NEG (NEG); URINE SPECIFIC GRAVITY 1.031 (1.000-1.030); UROBILINOGEN NEG (NEG)
[2017-01-06] MEDS ORDERED: BCTROWC EXT (16:02)
--- NOTE | 2017-01-06 16:04 | EMERGENCY ROOM VISIT NOTE ---
ED Visit Note First contact with patient: 12:49 CHIEF COMPLAINT: Infection of the face 1 week HISTORY OF PRESENT ILLNESS: Patient is a 41-year-old white male who presents emergency department for evaluation of a rash on his face that has been present for about a week. Patient reports that he flushed his teeth after eating last , 8 days ago. The following day, he developed left lower gum pain and swelling progressed to dental pain. He reported a foul, metallic taste in his mouth. He then broke out in a pustular rash on his face, primarily along his jawline. He does admit to popping and picking up the blisters. He has also shaved over them. He was seen [address] Blackwood and placed on hydroxyzine 50 mg 4 times a day and cephalexin 500 mg 4 times a day. He has not broken out and any further reasons since. He has noted intermittent hot flashes, sweats and chills. His girlfriend was worried because he felt warm this morning. He did not hit his temperature with a thermometer. He has a history of Hodgkin's lymphoma that has been in remission for 3 years. He is not presently receiving any treatment for this, but he is concerned because his "immune system is low." He wants to make sure that he is responding appropriately to therapy. He denies any other rashes elsewhere. REVIEW OF SYSTEMS: Review of systems as per HPI. All other systems reviewed were negative. 10 systems reviewed. PMH: Electronic medical records are reviewed and summarized as above/below. See Problem List. SOCIAL HISTORY: Patient lives at home. Smoker. PHYSICAL EXAM: Vital Signs: Reviewed Nurse's notes. GENERAL: Patient is a well-appearing 41-year-old white male who is awake and alert and in no acute distress. Vital signs are stable. He is afebrile. HEENT: Normocephalic, atraumatic. Pupils equal, round, reactive to light and accommodation. EOMs intact without nystagmus. Sclera are anicteric. Tympanic membranes intact, with normal landmarks. External canals are clear. Oral and nasopharynx are clear. Patient has poor dentition with multiple eroded molars. No gumline abscess is appreciated. Diffuse gingival disease noted. Mucous membranes are moist. INTEGUMENTARY: The patient has multiple scabbed over areas, primarily on the jawline, also noted on the nose. They are shallow, without ulceration, no vesicles noted. They are nontender to palpation. No overt cellulitis changes are noted. NECK: Supple without lymphadenopathy. No nuchal rigidity. HEART: Regular rate and rhythm. LUNGS: Clear to auscultation. EMERGENCY DEPARTMENT COURSE: The patient was seen and assessed him and as above. His old records are reviewed. He presents to the emergency department because he is concerned about his response to healing. He has been see by his PCP. The etiology of his lesions were unclear. He does appear to be responding however as he has not had any further breakouts, and the dental infection has cleared. The patient admittedly has been picking at, scratching, shaving over and agitating the wounds, which I suspect has impaired healing. I do question whether he may have a superimposed impetigo, and have provided him with Bactroban. At his request, CBC and CMP were collected and were unremarkable. Urinalysis was clear. Urine tox screen was positive for opioids and amphetamines. He does not have any evidence for dermatologic emergency including SJS or TEN. He was encouraged to follow-up with his primary care provider this week for recheck. Medication reconciliation: I attest that I have personally reviewed the patient' s current medication list. Blood pressure screening : Patient was found to have normal blood pressure on screening and does not require follow-up. Problem List Medical Problems: (1) Abdominal pain Status: Resolved (2) Anemia Nos Status: Chronic (3) Anxiety Status: Chronic (4) Asthma, Unspecified Status: Chronic (5) Bilateral ankle pain Status: Resolved (6) Dehydration Status: Resolved (7) Depressed Status: Chronic (8) Depression Status: Resolved (9) Depression Status: Resolved (10) Depression Status: Resolved (11) Elevated white blood cell count Status: Resolved (12) Facial injury Status: Resolved (13) Fall Status: Resolved (14) Fecal retention Status: Resolved (15) Fever Status: Resolved (16) Heroin abuse Status: Resolved (17) History of lymphoma Status: Resolved (18) History of lymphoma Status: Resolved (19) Hodgkin's lymphoma Status: Resolved (20) Hypokalemia Status: Resolved (21) Impetigo Status: Resolved (22) Methadone withdrawal Status: Resolved (23) Narcotic abuse Status: Resolved (24) Narcotic addiction Status: Resolved (25) Narcotic withdrawal Status: Resolved (26) Nasal bone fractures Status: Resolved (27) Nondisplaced dome fracture of left talus Status: Resolved (28) Pneumonia Status: Resolved (29) Syncope Status: Resolved (30) Wound dehiscence Status: Resolved Surgical Problems: (1) S/P ACL surgery Status: Resolved Current/Historical Medications Scheduled Mupirocin (Bactroban 2% Oint), 1 APPLN EXT TID Allergies Coded Allergies: Grass (Verified Allergy, Intermediate, SNEEZING, RUNNY NOSE, ITCHY EYES, ) Horse Allergy (Verified Allergy, Unknown, UNKNOWN, 01/06/17) ALLERGY TO HORSE HAIR Molds and Smuts (Verified Allergy, Unknown, UNKNOWN, 01/06/17) Vital Signs Date Time Temp Pulse Resp B/P (MAP) Pulse Ox O2 Delivery O2 Flow Rate FiO2 01/06/17 15:51 79 16 112/61 98 Room Air 01/06/17 13:43 67 15 115/72 96 Room Air 01/06/17 11:30 36.4 84 18 101/54 95 Room Air Laboratory Results 01/06/17 13:40 Red Blood Count 4.60, Mean Corpuscular Volume 87.0, Mean Corpuscular Hemoglobin 29.1, Mean Corpuscular Hemoglobin Concent 33.5, Mean Platelet Volume 9.2, Neutrophils (%) (Auto) 43.6, Lymphocytes (%) (Auto) 34.6, Monocytes (%) (Auto) 16.1, Eosinophils (%) (Auto) 4.5, Basophils (%) (Auto) 1.0, Neutrophils # (Auto ) 2.74, Lymphocytes # (Auto) 2.17, Monocytes # (Auto) 1.01, Eosinophils # (Auto ) 0.28, Basophils # (Auto) 0.06 01/06/17 13:40 Test 01/06/17 13:40 01/06/17 14:15 White Blood Count 6.27 K/uL (4.8-10.8) Red Blood Count 4.60 M/uL (4.7-6.1) Hemoglobin 13.4 g/dL (14.0-18.0) Hematocrit 40.0 % (42-52) Mean Corpuscular Volume 87.0 fL (80-100) Mean Corpuscular Hemoglobin 29.1 pg (25-34) Mean Corpuscular Hemoglobin Concent 33.5 g/dl (32-36) Platelet Count 199 K/uL (130-400) Mean Platelet Volume 9.2 fL (7.4-10.4) Neutrophils (%) (Auto) 43.6 % Lymphocytes (%) (Auto) 34.6 % Monocytes (%) (Auto) 16.1 % Eosinophils (%) (Auto) 4.5 % Basophils (%) (Auto) 1.0 % Neutrophils # (Auto) 2.74 K/uL (1.4-6.5) Lymphocytes # (Auto) 2.17 K/uL (1.2-3.4) Monocytes # (Auto) 1.01 K/uL (0.11-0.59) Eosinophils # (Auto) 0.28 K/uL (0-0.5) Basophils # (Auto) 0.06 K/uL (0-0.2) RDW Standard Deviation 43.9 fL (36.4-46.3) RDW Coefficient of Variation 13.8 % (11.5-14.5) Immature Granulocyte % (Auto) 0.2 % Immature Granulocyte # (Auto) 0.01 K/uL (0.00-0.02) Anion Gap 10.0 mmol/L (3-11) Est Creatinine Clear Calc Drug Dose 95.7 ml/min Estimated GFR () 97.5 Estimated GFR (Non- 84.1 BUN/Creatinine Ratio 9.9 (10-20) Calcium Level 8.3 mg/dl (8.5-10.1) Total Bilirubin 0.2 mg/dl (0.2-1) Aspartate Amino Transf (AST/SGOT) 25 U/L (15-37) Alanine Aminotransferase (ALT/SGPT) 25 U/L (12-78) Alkaline Phosphatase 66 U/L (45-117) Total Protein 7.0 gm/dl (6.4-8.2) Albumin 3.0 gm/dl (3.4-5.0) Globulin 4.0 gm/dl (2.5-4.0) Albumin/Globulin Ratio 0.8 (0.9-2) Urine Color DK YELLOW Urine Appearance CLEAR (CLEAR) Urine pH 5.0 (4.5-7.5) Urine Specific [place] 1.031 (1.000-1.030) Urine Protein NEG (NEG) Urine Glucose (UA) NEG (NEG) Urine Ketones NEG (NEG) Urine Occult Blood NEG (NEG) Urine Nitrite NEG (NEG) Urine Bilirubin NEG (NEG) Urine Urobilinogen NEG (NEG) Urine Leukocyte Esterase NEG (NEG) Urine Opiates Screen POS (NEG) Urine Methadone, Qualitative NEG (NEG) Urine Barbiturates NEG (NEG) Urine Phencyclidine (PCP) Level NEG (NEG) Ur Amphetamine/Methamphetamine POS (NEG) MDMA (Ecstasy) Screen NEG (NEG) Urine Benzodiazepines Screen NEG (NEG) Urine Cocaine Metabolite NEG (NEG) Urine Marijuana (THC) NEG (NEG) Departure Information Impression Primary Impression: Facial rash Prescriptions Mupirocin (Bactroban 2% Oint) 66 Appln/22 Gm Oint 1 APPLN EXT TID, #1 TUBE 1 Refill Prov: Nohemi Villa PA 01/06/17 Referrals Magdiel Cintron M.D. (PCP) Patient Instructions My [facility] Additional Instructions Finish Keflex. Apply a thin layer of Bactroban ointment to affected areas 3 times daily for the next 7-10 days. Clean gently with mild soap and water. Do not scratch, pick or shave over lesions until healed. Continue current medications. Follow up with your family physician next week for recheck. Return to the ED as needed.
[2017-01-09 09:42] LABS: COD UR NEGATIVE NG/ML (CUTOFF=50); HYDROCOD UR NEGATIVE NG/ML (CUTOFF=50); HYDROMOR UR NEGATIVE NG/ML (CUTOFF=50); MORPHINE UR 5100 NG/ML (CUTOFF=50); NORHYDROCODONE CONF UR NEGATIVE NG/ML (CUTOFF=50); OXYMORPH UR 84 NG/ML (CUTOFF=50)
== END 2017-01-06 16:45 | disposition home or self-care (01) ==
LOC: C.EDB 11:29
DX: R21 Rash and other nonspecific skin eruption (principal); F41.9 Anxiety disorder, unspecified; J45.909 Unspecified asthma, uncomplicated; F32.9 Major depressive disorder, single episode, unspecified; D64.9 Anemia, unspecified; Z85.71 Personal history of Hodgkin lymphoma; Z87.81 Personal history of (healed) traumatic fracture; Z91.09 Other allergy status, other than to drugs and biological substances

== ENCOUNTER → 2017-01-17 | Outpatient (CLI) | payer BC ==
[~2017-01-17] MED LIST changes: -AMOX500C3 PO; +BCTROWC EXT; -NRN600 PO; -PROAIR INH
--- NOTE | 2017-01-17 15:29 | DIAGNOSTIC IMAGING REPORT ---
CHEST 2 VIEWS ROUTINE HISTORY: R09.89 Abnormal lung [id number] COMPARISON: Chest 12/02/2016. FINDINGS: Stable subtle reticulonodular interstitial thickening. No new focal lung consolidations. The heart is normal in size. No pleural effusions. No pneumothorax. Surgical clips are again noted within the left neck. IMPRESSION: Stable subtle reticulonodular interstitial thickening. No new focal lung consolidations. Electronically signed by: Leon Espinoza M.D. 01/17/2017 3:27 PM Dictated Date/Time: 01/17/2017 3:25 PM
== END | disposition home or self-care (01) ==
LOC: C.RAD 14:51
PROVIDERS: ATTEND Nurse Practitioner Adult Health
DX: R09.89 Other specified symptoms and signs involving the circulatory and respiratory systems (principal); R91.8 Other nonspecific abnormal finding of lung field

== ENCOUNTER 2017-06-22 17:04 | Emergency (ER) | payer BC, OTHER ==
[~2017-06-22] VITALS: Ht 172.7 cm; Wt 90.2 kg
[2017-06-22 17:09] VITALS: TEMP 36.7; Ht 172.7 cm; Wt 90.2 kg
[2017-06-22] MEDS ORDERED: XYLOCAINE 1%/SOD BICARB 20 ML VIAL INFIL STA (17:33)
[2017-06-22] MEDS ORDERED: CEPHALEXIN MONOHYDRATE 250 MG CAP PO STA (17:34)
[2017-06-22] MEDS ORDERED: SULFAMETHOXAZOLE/TRIMETHOPRIM DS 800/160MG TAB PO STA (17:34)
[2017-06-22] MEDS ORDERED: NALT380I INJ (17:54)
[2017-06-22 18:05] VITALS: BP 141/92; PULSE 75; O2SAT 98
[2017-06-22] MEDS ORDERED: CEPH500C PO (18:07)
[2017-06-22] MEDS ORDERED: SULF800T23 PO (18:07)
--- NOTE | 2017-06-22 18:10 | EMERGENCY ROOM VISIT NOTE ---
ED Visit Note First contact with patient: 17:11 CHIEF COMPLAINT: Infection of the right wrist HISTORY OF PRESENT ILLNESS: This 41-year-old male patient, significant past medical history of hepatitis C and IV drug use, presents to the emergency department approximately 1-1/2 weeks after they noticed a hard, red, tender area of the mid anterior right wrist. The patient denies any recent IV drug use. It is slowly getting larger, more painful and tender. No fever, chills, or loss of appetite. There has been no drainage from the area. There was no injury to the area preceding the infection. They rate the pain as sharp and full and 6/10. Tetanus shot is up to date. They have tried a couple doses of Keflex over 1 day without improvement. The patient is not diabetic. The patient has no history of subcutaneous abscesses. REVIEW OF SYSTEMS: A 10 system review of systems was performed with positives and pertinent negatives listed in the history of present illness. All other systems were reviewed and are negative. ALLERGIES: None MEDICATIONS: Naltrexone, Provera, multivitamin PMH: Asthma, IV drug use, hepatitis C SOCIAL HISTORY: The patient lives locally with family. He denies current drug use. He admits to smoking 1 pack of cigarettes per day. He admits to regular alcohol use. PHYSICAL EXAM: Vital Signs: Reviewed Nurse's notes, vital signs stable. GENERAL : This is a 41-year-old white male, no acute distress, non toxic in appearance, well-developed well-nourished. SKIN: There is an erythematous indurated area on the anterior right wrist which measures about 2 cm in diameter. It is fluctuant but there is no pointing or drainage. There is a zone of inflammation around it but no lymphangitis. Capillary refill less than 2 seconds. MUSCULOSKELETAL: There is moderate limitation of the range of motion of the wrist due to swelling and pain. EMERGENCY DEPARTMENT COURSE: I examined the patient. Due to the location of abscess and patient's previous history of IV drug use and hepatitis C, I do not feel comfortable performing an incision and drainage while here in the emergency department. I did discuss options with the patient including needle aspiration of the wound, and the patient was agreeable. Verbal consent was obtained to perform the procedure. After saline and Betadine cleansing and 2 mL of 1% buffered lidocaine anesthesia, the abscess was punctured with an 18- gauge needle on syringe. A small amount of purulent fluid was expressed within the syringe. A small amount of bloody, purulent material was expressed by pressure. The syringe was sent for culture. The area was cleaned with sterile saline and dressed with bacitracin and a bulky bandage. The patient tolerated the procedure well. The patient was given his first dose of Keflex and Bactrim while here in the emergency department. Discharge instructions reviewed, the patient was encouraged to follow-up outpatient with orthopedics. The patient was discharged home in stable condition. I attest that I have personally reviewed the patient's current medication list. Patient was found to have normal blood pressure on screening and does not require follow-up. Differential diagnosis includes abscess, ganglion cyst, bursitis, cyst, malignancy, and others DIAGNOSIS: Abscess of the right wrist The chart was completed utilizing [employer] Speech voice recognition software. Grammatical errors, random word insertions, pronoun errors, and incomplete sentences are an occasional consequence of this system due to software limitations, ambient noise, and hardware issues. Any formal questions or concerns about the content, text, or information contained within the body of this dictation should be directly addressed to the provider for clarification. Problem List Medical Problems: (1) Abdominal pain Status: Resolved (2) Anemia Nos Status: Chronic (3) Anxiety Status: Chronic (4) Asthma, Unspecified Status: Chronic (5) Bilateral ankle pain Status: Resolved (6) Dehydration Status: Resolved (7) Depressed Status: Chronic (8) Depression Status: Resolved (9) Depression Status: Resolved (10) Depression Status: Resolved (11) Elevated white blood cell count Status: Resolved (12) Facial injury Status: Resolved (13) Fall Status: Resolved (14) Fecal retention Status: Resolved (15) Fever Status: Resolved (16) Heroin abuse Status: Resolved (17) History of lymphoma Status: Resolved (18) History of lymphoma Status: Resolved (19) Hodgkin's lymphoma Status: Resolved (20) Hypokalemia Status: Resolved (21) Impetigo Status: Resolved (22) Methadone withdrawal Status: Resolved (23) Narcotic abuse Status: Resolved (24) Narcotic addiction Status: Resolved (25) Narcotic withdrawal Status: Resolved (26) Nasal bone fractures Status: Resolved (27) Nondisplaced dome fracture of left talus Status: Resolved (28) Pneumonia Status: Resolved (29) Syncope Status: Resolved (30) Wound dehiscence Status: Resolved Surgical Problems: (1) S/P ACL surgery Status: Resolved Current/Historical Medications Scheduled Cephalexin Monohydrate (Keflex), 500 MG PO QID Naltrexone (Vivitrol), 380 MG INJ UD Sulfa/Trimethoprim (Bactrim Ds 800MG/160MG), 1 TAB PO BID Allergies Coded Allergies: Grass (Verified Allergy, Intermediate, SNEEZING, RUNNY NOSE, ITCHY EYES, ) Horse Allergy (Verified Allergy, Unknown, UNKNOWN, 06/22/17) ALLERGY TO HORSE HAIR Molds and Smuts (Verified Allergy, Unknown, UNKNOWN, 06/22/17) Vital Signs Date Time Temp Pulse Resp B/P (MAP) Pulse Ox O2 Delivery O2 Flow Rate FiO2 06/22/17 18:05 75 17 141/92 98 Room Air 06/22/17 17:09 36.7 83 18 96 Room Air Medications Administered Medications (Trade) Dose Ordered Sig/Yareli Route Start Time Stop Time Status Last Admin Dose Admin Trimethoprim/ Sulfamethoxazole (Septra Ds 800/ 160MG Tab) 1 tab NOW STAT PO 06/22/17 17:34 06/22/17 17:36 DC 06/22/17 18:06 1 TAB Cephalexin Monohydrate (Keflex Cap) 500 mg NOW STAT PO 06/22/17 17:34 06/22/17 17:36 DC 06/22/17 18:06 500 MG Departure Information Impression Primary Impression: Abscess of right arm Dispostion Home / Self-Care Condition GOOD Prescriptions Cephalexin Monohydrate (Keflex) 500 Mg Cap 500 MG PO QID for 10 Days, #40 CAP Prov: Sangita Franco PA-C 06/22/17 Sulfa/Trimethoprim (Bactrim Ds 800MG/160MG) Tab 1 TAB PO BID for 10 Days, #20 TAB Prov: Sangita Franco PA-C 06/22/17 Referrals No Doctor, Assigned (PCP) Moncho Abreu MD Patient Instructions ED Abscess IandD, My [facility] Additional Instructions He was seen in the emergency department today for abscess of the right anterior wrist. This was drained with an 18-gauge needle. A small amount of purulent fluid was expressed, however you will need to have a consult by orthopedics for possible removal of the cyst. Cephalexin(Keflex) 500mg: Take one pill four times daily for 10 days for your skin infection. All antibiotics can cause diarrhea. If this occurs and you feel worse or it does not resolve in 1-2 days follow up with your doctor or return to the Emergency Department as this could be signs of serious underlying problems. Any medication can cause an allergic reaction, stop the pills immediately and return to the ER for rash, hives, breathing difficulties, or swelling. Trimethoprim-Sulfamethoxazole(Bactrim DS): Take one pill twice daily for 10 days for your skin infection. All antibiotics can cause diarrhea. If this occurs and you feel worse or it does not resolve in 1-2 days follow up with your doctor or return to the Emergency Department as this could be signs of serious underlying problems. Any medication can cause an allergic reaction, stop the pills immediately and return to the ER for rash, hives, breathing difficulties, or swelling. Please soak the abscess and warm water several times per day. You may perform some gentle massage to help with drainage. Culture was performed, and you will receive results in 2-3 days if antibiotics need to be adjusted. Please follow-up with orthopedics in 2-3 days for reevaluation of the abscess. Return to the emergency department for any significantly worsening redness, swelling, fevers, red streaking up the arm, systemic symptoms, or other concerns.
== END 2017-06-22 18:14 | disposition home or self-care (01) ==
LOC: C.EDB 17:06 → C.EDD 18:14
DX: L02.413 Cutaneous abscess of right upper limb (principal); D64.9 Anemia, unspecified; F41.9 Anxiety disorder, unspecified; J45.909 Unspecified asthma, uncomplicated; F32.9 Major depressive disorder, single episode, unspecified; Z85.72 Personal history of non-Hodgkin lymphomas; Z86.19 Personal history of other infectious and parasitic diseases; F19.90 Other psychoactive substance use, unspecified, uncomplicated; Z91.048 Other nonmedicinal substance allergy status

== ENCOUNTER 2017-11-18 17:19 | Emergency (ER) | payer OTHER ==
[~2017-11-18] VITALS: Ht 172.7 cm; Wt 97.4 kg
[~2017-11-18 17:19] MED LIST changes: -BCTROWC EXT; +NALT380I IM
[2017-11-18 17:23] VITALS: TEMP 36.9; Ht 172.7 cm; Wt 97.4 kg
[2017-11-18] MEDS ORDERED: ATOM60CA PO (18:14)
[2017-11-18 18:18] VITALS: BP 152/99; PULSE 103; O2SAT 96
[2017-11-18] MEDS ORDERED: PNC/500 PO (18:18)
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
== END 2017-11-18 18:20 | disposition home or self-care (01) ==
LOC: C.EDB 17:21 → C.EDA 18:20
DX: R46.89 Other symptoms and signs involving appearance and behavior (principal); F41.9 Anxiety disorder, unspecified; J45.909 Unspecified asthma, uncomplicated; F32.9 Major depressive disorder, single episode, unspecified; E87.6 Hypokalemia; F17.200 Nicotine dependence, unspecified, uncomplicated; F11.90 Opioid use, unspecified, uncomplicated

== ENCOUNTER 2019-01-09 16:53 | Observation (INO) ==
[2019-01-09] MEDS ORDERED: SODIUM CHLORIDE 0.9% 1000ML 1,000 ML IV SCH (17:15)
[2019-01-09 17:33] LABS: Basophils # (auto) 0.08 K/uL (0-0.2); Basophils % (auto) 0.6 %; Hematocrit (blood only) 49.5 % (42-52); Hemoglobin 17.4 g/dL (14.0-18.0); Immature Granulocytes # (auto) 0.04 K/uL (0.00-0.02); Immature Granulocytes % (auto) 0.3 %; Lymphocytes # (auto) 4.26 K/uL (1.2-3.4); Lymphocytes % (auto) 31.6 %; Mean Corpuscular Hemoglobin 31.7 pg (25-34); Mean Corpuscular Hgb Conc 35.2 g/dL (32-36); Mean Corpuscular Volume 90.2 fL (80-100); Mean Platelet Volume 9.2 fL (7.4-10.4); Monocytes % (auto) 12.6 %; Neutrophils # (auto) 6.99 K/uL (1.4-6.5); Neutrophils % (auto) 51.9 %; Platelet Count 282 K/uL (130-400); RDW Standard Deviation 46.5 fL (36.4-46.3); Red Blood Count 5.49 M/uL (4.7-6.1); White Blood Count 13.47 K/uL (4.8-10.8)
[2019-01-09 17:50] LABS: Albumin Level 4.3 gm/dl (3.4-5.0); BUN Creatinine Ratio 8.5 (10-20); Calcium 9.6 mg/dl (8.5-10.1); Creatinine Clr Calc Pharmacy 54.1 ml/min; Est GFR (African American) 47.2; Est GFR (Non-African American) 40.8; Magnesium 2.2 mg/dl (1.8-2.4)
[2019-01-09 17:53] LABS: Globulin 4.3 gm/dl (2.5-4.0); Total Protein 8.6 gm/dl (6.4-8.2)
--- NOTE | 2019-01-09 17:57 | XRay Report ---
SINGLE VIEW CHEST CLINICAL HISTORY: Generalized weakness. FINDINGS: An AP, portable, upright chest radiograph is compared to study dated 10/01/2018. The cardiom ediastinal silhouette is unremarkable. There is mild elevation of left hemidiaphragm and bibasilar at electasis. The lungs and pleural spaces are otherwise clear. No pneumothorax is seen. The bony thorax is grossly intact. Surgical clips are seen in the left lower neck. IMPRESSION: No active disease in the chest. Electronically signed by: Gaston Dyer M.D. 01/09/2019 5:55 PM
[2019-01-09] MEDS ORDERED: SODIUM CHLORIDE 0.9% 1000ML 1,000 ML IV ONE (18:11)
[2019-01-09] MEDS ORDERED: cefTRIAXone SODIUM 2,000 MG/70 ML BAG IV STA (18:24)
[2019-01-09] MEDS ORDERED: DIAZEPAM 5 MG/ML INJ 10ML VIAL IV STA ×2 (18:48→19:50)
[2019-01-09] MEDS ORDERED: LORazepam 1 MG/2 ML VIAL IV PRN (19:52)
--- NOTE | 2019-01-09 19:59 | Pharmacy Report ---
ED Pharmacist Progress Note - ED Pharmacist Progress Note Date of Service:: January 09, 2019 Notes:: RN came to me with multidose vial of diazepam asking if the contents of the vial needed to be discharged and a new vial taken from [id number] as pt is ordered a second dose by dr us. i advised the rn to use the same vial for this second dose rather than wasting the entire contents of this vial plus the remainder of the second vial. this is a multidose vial.
--- NOTE | 2019-01-09 20:03 | Emergency Department Note ---
Entered by Debbi Belle acting as a scribe for History of Present Illness General Chief complaint: Overdose (Intentional) Stated complaint: SEIZURE Time Seen by Provider: 01/09/19 17:00 Source: patient and family History of Present Illness Onset (ago): hour(s) 1 Location: head (Syncope) Severity: similar to prior episodes Pain Consistency: + other (Episode) Quality: + other (Syncope) Exacerbated By: + other (drugs) Associated symptoms: + diaphoresis, + syncope and + other (Prior drug use.) The patient is a 43 year old male who presents to the Emergency Department complaining of an episode of syncope starting 1 hour ago. The patients mother reports that she found the patient laying on the kitchen floor sweating. She states that she had seen the patient less than an hour before and that he was acting as if he was using drugs. She notes that the patient showed signs of using drugs yesterday as he was acting jittery and his pupils were small. She adds that the patient was released 3 weeks ago from an inpatient rehabilitation program for 60 days. The patients mother reports that the patient was in rehab for his addiction to heroin and methamphetamines. She states that the patient has no Narcan at home. The patient reports that he got out of rehab about 3 weeks ago and started using Fentanyl and methamphetamines about 1 week ago. He states that [address] [employer] he used Fentanyl. He explains that he has not used methamphetamines in the past day. The nurse reports that she found a syringe sticking out of the patients medial posterior right ankle. She also found drug paraphernalia in the patients socks. Home Medications Home Medications Medication Instructions Recorded Confirmed Type fluticasone propionate-salmeterol 2 puffs INH Q12H #12 gm 10/04/18 10/15/18 Rx 115 mcg-21 mcg/actuation HFA inhaler propranolol 40 mg tablet 40 mg PO BID #60 tab 10/04/18 10/15/18 Rx albuterol sulfate HFA 90 2 puffs INH QID #18 gm 01/07/19 Rx mcg/actuation aerosol inhaler naloxone [Narcan] 1 sprays INTNAS DIRECTED #2 ea 01/09/19 Rx Allergies Allergy/AdvReac Type Severity Reaction Status Date / Time grass pollen-perennial rye, Allergy Intermediate SNEEZING, Verified 10/15/18 22:18 standar RUNNY NOSE, ITCHY EYES Horse/Equine Containing Allergy Unknown UNKNOWN Verified 10/15/18 22:18 Products mold Allergy Unknown UNKNOWN Verified 10/15/18 22:18 Past Med/Surg History Medical History Methamphetamine use disorder, moderate, dependence (Chronic) Heroin use disorder, moderate, dependence (Chronic) IV drug user (Chronic) Viral hepatitis C without hepatic coma (Chronic) Bipolar disorder (Chronic) History of lymphoma (Chronic) Aggressive behavior (Resolved) Fecal retention (Resolved) History of lymphoma (Resolved) Hypokalemia (Resolved) Impetigo (Resolved) Nondisplaced dome fracture of left talus (Resolved) Surgical History S/P ACL reconstruction Family History Grandfather (Maternal) Diabetes Myocardial infarction Social History Preferred Language: Bahamian Visual Impairment: No Limitations Curbing Stonecutter Required: No Beliefs That Will Affect Care: None marital status: Single Current Living Situation: Family current occupational status: employed 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 and A total of 10 systems reviewed and were otherwise negative Physical Exam Vital Signs Vital Signs - 24 hr 01/09/19 16:54 01/09/19 17:10 01/09/19 19:08 Temperature 37 C Temperature Source Oral Sepsis Recent Fever Within 48 Hours No Sepsis Action Taken by Nursing No Action Required Pulse Rate 75 84 Pulse Rate [Apical] 84 79 Pulse Rhythm Regular Regular Pulse Rhythm [Apical] Regular Regular Pulse Strength Normal Pulse Strength [Apical] Normal Respiratory Rate 24 22 24 Respiratory Effort / Characteristics Non-Labored Spontaneous Non-Labored Spontaneous Non-Labored Respiratory Depth Normal Normal Normal Respiratory Pattern Regular Regular Blood Pressure [Left Arm] 122/77 115/64 Blood Pressure Mean [Left Arm] 92 81 Blood Pressure Position [Left Arm] Lying Pulse Oximetry 98 95 94 Oxygen Delivery Method Room Air Room Air Room Air GENERAL: Patient is in mild distress. He is sweating. HEENT: No acute trauma, normocephalic atraumatic, mucous membranes moist, no nasal congestion, no scleral icterus. Pupils pin point. NECK: No stridor, no adenopathy, no meningismus, trachea is midline. LUNGS: Clear to auscultation bilaterally, no wheeze, no rhonchi, breath sounds equal. HEART: Without murmurs gallops or rubs, regular rate and rhythm. ABDOMEN: Soft, nontender, bowel sounds positive, no hernias, no peritonitis. EXTREMITIES: No cyanosis or edema, full range of motion of all the joints without pain or difficulty, no signs for acute trauma. NEUROLOGIC: Awake. Slurs speech. Appears intoxicated. Moves all extremities. Maintaining his airway. SKIN: No rash, no jaundice. Moderate diaphoresis. Course 170: The patient was evaluated in room B3, and a complete history and physical examination were performed. 1819: I reevaluated the patient at this time. The patient reports that he thinks he is willing to stay but wants to talk it over with his mother first. 182: I discussed the patient's case with Dr. Edin ERWIN hospitalist. She will evaluate the patient for further management. 184: I updated the patient at this time. Consultations Consultation #1: I discussed the patient's case with Dr. Edin ERWIN hospitalist. She will evaluate the patient for further management. Time: 18:27 Administered Medications Famotidine (Pepcid) 20 mg PO BID [facility] Stop: 02/08/19 20:59 Last Admin: 01/09/19 21:22 Dose: 20 mg Documented by: [id number] Heparin Sodium (Porcine) (Heparin Sodium (Porcine)) 5,000 units SQ Q8 SUZY Stop: 02/08/19 21:59 Last Admin: 01/09/19 21:23 Dose: 5,000 units Documented by: [id number] Cosigned by: [id number] Sodium Chloride (1/2 Nss) 1,000 mls @ 150 mls/hr IV .Q6H40M SUZY Stop: 02/08/19 20:59 Last Admin: 01/09/19 21:13 Dose: 150 mls/hr Documented by: [id number] Fluticasone/Salmeterol (Advair Diskus 100/50) 1 puffs INH BID SUZY Stop: 02/08/19 20:59 Last Admin: 01/09/19 21:22 Dose: 1 puffs Documented by: [id number] Discontinued Medications Diazepam (Valium) 2.5 mg IV NOW STA Stop: 01/09/19 18:49 Last Admin: 01/09/19 19:00 Dose: 2.5 mg Documented by: [id number] Diazepam (Valium) 5 mg IV NOW STA Stop: 01/09/19 19:51 Last Admin: 01/09/19 19:56 Dose: 5 mg Documented by: [id number] Sodium Chloride (Nss 1000ml) 1,000 mls @ 999 mls/hr IV .Q1H1M SUZY Stop: 01/09/19 18:15 Last Infusion: 01/09/19 20:48 Dose: 0 mls/hr Documented by: [id number] Admin: 01/09/19 17:22 Dose: 999 mls/hr Documented by: [id number] Sodium Chloride (Nss 1000ml) 1,000 mls @ 999 mls/hr IV .Q1H1M ONE Stop: 01/09/19 19:11 Last Admin: 01/09/19 20:37 Dose: Not Given Documented by: [id number] Ceftriaxone Sodium (Rocephin) 2,000 mg in 70 mls @ 140 mls/hr IV NOW STA Stop: 01/09/19 18:53 Last Infusion: 01/09/19 20:36 Dose: 0 mls/hr Documented by: [id number] Admin: 01/09/19 19:43 Dose: 140 mls/hr Documented by: [id number] Medical Decision Making Differential Diagnosis Differentials include seizure, narcotic abuse, methamphetamine abuse, alcohol abuse, dehydration, electrolyte or metabolic imbalance, seizure and dysrhythmia amongst others. Medical Records Attestation: I reviewed the patient's medical records. Home Medications Current Medication List: was personally reviewed by me Laboratory Data Attestation: I reviewed the patient's lab results. Result diagrams: 01/09/19 17:22 01/09/19 17:22 Lab Results 01/09/19 01/09/19 01/09/19 Range/Units 17:22 17:22 17:22 WBC 13.47 H (4.8-10.8) K/uL RBC 5.49 (4.7-6.1) M/uL Hgb 17.4 (14.0-18.0) g/dL Hct 49.5 (42-52) % MCV 90.2 (80-100) fL MCH 31.7 (25-34) pg MCHC 35.2 (32-36) g/dL RDW Std Deviation 46.5 H (36.4-46.3) fL RDW Coeff of Beatrice 14.0 (11.5-14.5) % Plt Count 282 (130-400) K/uL MPV 9.2 (7.4-10.4) fL Immature Gran % (Auto) 0.3 % Neut % (Auto) 51.9 % Lymph % (Auto) 31.6 % Toole % (Auto) 12.6 % Eos % (Auto) 3.0 % Baso % (Auto) 0.6 % Immature Gran # (Auto) 0.04 H (0.00-0.02) K/uL Neut # (Auto) 6.99 H (1.4-6.5) K/uL Lymph # (Auto) 4.26 H (1.2-3.4) K/uL Toole # (Auto) 1.70 H (0.11-0.59) K/uL Eos # (Auto) 0.40 (0-0.5) K/uL Baso # (Auto) 0.08 (0-0.2) K/uL Sodium 136 (136-145) mmol/L Potassium 4.0 (3.5-5.1) mmol/L Chloride 105 (98-107) mmol/L Carbon Dioxide 22 (21-32) mmol/L Anion Gap 9.0 (3-11) BUN 17 (7-18) mg/dl Creatinine 1.98 H (0.6-1.4) mg/dl Est Cr Clr Drug Dosing 54.1 ml/min Est GFR ( Amer) 47.2 Est GFR (Non-Af Amer) 40.8 BUN/Creatinine Ratio 8.5 L (10-20) Glucose 167 H (70-99) mg/dl Calcium 9.6 (8.5-10.1) mg/dl Magnesium 2.2 (1.8-2.4) mg/dl Total Bilirubin 1.0 (0.2-1) mg/dl AST 38 H (15-37) U/L ALT 76 (12-78) U/L Alkaline Phosphatase 49 (45-117) U/L Total Creatine Kinase 377 H (39-308) U/L Total Protein 8.6 H (6.4-8.2) gm/dl Albumin 4.3 (3.4-5.0) gm/dl Globulin 4.3 H (2.5-4.0) gm/dl Albumin/Globulin Ratio 1.0 (0.9-2) Ethyl Alcohol mg/dL < 3.0 (0-3) mg/dl Imaging Data Radiologist's Impression: Radiology results as stated below per my review and the radiologist's interpretation: SINGLE VIEW CHEST CLINICAL HISTORY: Generalized weakness. FINDINGS: An AP, portable, upright chest radiograph is compared to study dated 10/01/2018. The cardiomediastinal silhouette is unremarkable. There is mild eleva tion of left hemidiaphragm and bibasilar atelectasis. The lungs and pleural spaces are otherwise clear. No pneumothorax is seen. The bony thorax is grossly intact. Surgical clips are seen in the left lower neck. IMPRESSION: No active disease in the chest. Electronically signed by: Gaston Deyr M.D. 01/09/2019 5:55 PM ECG Data Attestation: I personally reviewed and interpreted this ECG as follows: Indication: syncope Rate (beats per minute): 80 Rhythm: normal sinus Findings: + other (QTC 459.); no ST elevation and no acute ischemic change Blood Pressure Blood Pressure Findings: Elevated blood pressure Blood Pressure Disposition: further management by hospitalist [facility] Narrative There is a mild leukocytosis at 13,000, this could be consistent with infection or the stress of his current situation. No anemia. Renal panel testing does show some acute kidney injury with a creatinine 1.98. There were some very subtle liver enzyme elevations. Total CK was mildly elevated but not high enough to diagnose rhabdomyolysis. Alcohol level was undetectable. EKG shows a sinus rhythm, no acute ischemia. Urine tox is pending. Chest film did not show pneumonia or CHF. On exam, the patient seemed intoxicated. Patient did become somewhat agitated while here in the ED once the intoxication began to wear off. The patient received IV ceftriaxone, this was given for the possibility of endocarditis/infection. He was given IV Valium. He received 2 doses to help with his agitation. He was given IV saline, 2 L. The patient is maintaining his airway. His vital signs are stable. He does seem agitated though and may be suffering from some withdrawal. Given his findings and presentation, given his acute kidney injury and my concern for bacterial infection, I do think a hospital stay is warranted. He did consent to hospitalization. I spoke with case management, I spoke with the patient and his mother, the on- call hospitalist has been consulted. Impression & Plan Confusion, Diaphoresis, LAW (acute kidney injury), Drug abuse Critical Care Time Critical Care Time: Yes Total Critical Care Time: 34 I have personally spent greater than 34 minutes of critical care time in the direct management of this patient. This includes bedside care, interpretation of diagnostic studies and testing, discussion with consultants, the patient, and family members, and other required patient management activities. This 34 minutes is in excess of all separately billable procedures. Discharge Plan Visit Data *Final* Discharge Date/Time: 01/09/19 20:39 Chief Complaint: Overdose (Intentional) Stated Complaint: SEIZURE ED Provider: Gaston Conrad Discharge Problem: Confusion, Diaphoresis, LAW (acute kidney injury), Drug abuse Patient Disposition: Admitted As Inpatient Discharge Instructions Interventions: ED Discharge Assessment Last Done: 01/09/19 20:39 The scribe's documentation has been prepared under my direction and personally reviewed by me in its entirety. I confirm that the note above accurately reflects all work, treatment, procedures, and medical decision making performed by me.
--- NOTE | 2019-01-09 20:30 | History & Physical Report ---
Date of Service January 09, 2019 Assessment & Plan (1) Toxic encephalopathy: Admit to tele It appears that patient is under effect of heroin recent use. From the information I have at this time, this is an unintentional OD/drug effect. One-to-one attendant I will check CT scan of head as patient was found on the floor. (2) Heroin use disorder, moderate, dependence: Had just been discharged from rehab 3 weeks prior. There was no Narcan in home per mother. (3) Methamphetamine use disorder, moderate, dependence: (4) Hyperglycemia: I am not ceratin if this is a finding just now or if he has been having hyperglycemia I will place him on diabetic diet. (5) Rhabdomyolysis: Mild, likely from Meth use Will trend CPK IV hydration (6) Asthma: Prn nebs Continue Advair discus. History of Present Illness 43 y/o male presented to the ED after mother found patient unconscious on the kitchen floor with a needle in his right ankle. He was diaphoretic and was able to awoken to verbal stimuli, but was confused. The patient is out of rehab for heroin and methamphetamines 3 weeks prior. The patient reported starting using both substances approximately 1 week ago. who presents to the Emergency Department complaining of an episode of syncope starting 1 hour ago. The patients mother reports that she found the patient laying on kitchen floor sweating. Nurse in ED noted syringe in patient's posterior medial right ankle and apparently there was drug paraphernalia in the patient's sock. As I saw the patient he was sleeping, after having a period of agitation requiring one-to-one attendant. Primary Care Provider: Matt Naranjo, III, PROCESS ARTIST Allergies Allergy/AdvReac Type Severity Reaction Status Date / Time grass pollen-perennial rye, Allergy Intermediate SNEEZING, Verified 10/15/18 22:18 standar RUNNY NOSE, ITCHY EYES Horse/Equine Containing Allergy Unknown UNKNOWN Verified 10/15/18 22:18 Products mold Allergy Unknown UNKNOWN Verified 10/15/18 22:18 Home Medications Home Medications Medication Instructions Recorded Confirmed Type fluticasone propionate-salmeterol 2 puffs INH Q12H #12 gm 10/04/18 10/15/18 Rx 115 mcg-21 mcg/actuation HFA inhaler propranolol 40 mg tablet 40 mg PO BID #60 tab 10/04/18 10/15/18 Rx albuterol sulfate HFA 90 2 puffs INH QID #18 gm 01/07/19 Rx mcg/actuation aerosol inhaler naloxone [Narcan] 1 sprays INTNAS DIRECTED #2 ea 01/09/19 Rx Past Med/Surg History Medical History Methamphetamine use disorder, moderate, dependence (Chronic) Heroin use disorder, moderate, dependence (Chronic) IV drug user (Chronic) Viral hepatitis C without hepatic coma (Chronic) Bipolar disorder (Chronic) History of lymphoma (Chronic) Aggressive behavior (Resolved) Fecal retention (Resolved) History of lymphoma (Resolved) Hypokalemia (Resolved) Impetigo (Resolved) Nondisplaced dome fracture of left talus (Resolved) Surgical History S/P ACL reconstruction Family History Grandfather (Maternal) Diabetes Myocardial infarction Social History Preferred Language: Belarusian Visual Impairment: No Limitations marital status: Single Current Living Situation: Alone current occupational status: employed 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 Head- atraumatic Eyes- PERRL, EOMI, anicteric ENT- oropharynx clear Neck- supple, no JVD, no adenopathy, no thyromegaly. Lungs- clear to auscultation, No rales, rhonchi, or wheezes Heart- regular rhythm; no murmur, no gallop, no rub appreciated Abdomen- normal bowel sounds, soft, nontender. Extremities- no pretibial edema, no calf tenderness. Neuro- Somnolent, he is protecting his airway; PERRL, EOMI; Moving all 4 extremities and can follow commands. Skin- warm & dry Results & Data Vital Signs (Past 12 Hours) Vital Signs Temp Pulse Pulse Resp BP Pulse Ox 01/09/19 19:08 79 24 115/64 94 01/09/19 17:10 84 84 22 122/77 95 01/09/19 16:54 37 C 75 24 98 Laboratory Results Laboratory Results WBC 13.47 K/uL (4.8-10.8) H 01/09/19 17:22 RBC 5.49 M/uL (4.7-6.1) 01/09/19 17:22 Hgb 17.4 g/dL (14.0-18.0) 01/09/19 17:22 Hct 49.5 % (42-52) 01/09/19 17:22 MCV 90.2 fL (80-100) 01/09/19 17:22 MCH 31.7 pg (25-34) 01/09/19 17:22 MCHC 35.2 g/dL (32-36) 01/09/19 17:22 RDW Std Deviation 46.5 fL (36.4-46.3) H 01/09/19 17:22 RDW Coeff of Beatrice 14.0 % (11.5-14.5) 01/09/19 17:22 Plt Count 282 K/uL (130-400) 01/09/19 17:22 MPV 9.2 fL (7.4-10.4) 01/09/19 17:22 Immature Gran % (Auto) 0.3 % 01/09/19 17:22 Neut % (Auto) 51.9 % 01/09/19 17:22 Lymph % (Auto) 31.6 % 01/09/19 17:22 [place] % (Auto) 12.6 % 01/09/19 17:22 Eos % (Auto) 3.0 % 01/09/19 17:22 Baso % (Auto) 0.6 % 01/09/19 17:22 Immature Gran # (Auto) 0.04 K/uL (0.00-0.02) H 01/09/19 17:22 Neut # (Auto) 6.99 K/uL (1.4-6.5) H 01/09/19 17:22 Lymph # (Auto) 4.26 K/uL (1.2-3.4) H 01/09/19 17:22 [place] # (Auto) 1.70 K/uL (0.11-0.59) H 01/09/19 17:22 Eos # (Auto) 0.40 K/uL (0-0.5) 01/09/19 17:22 Baso # (Auto) 0.08 K/uL (0-0.2) 01/09/19 17:22 Sodium 136 mmol/L (136-145) 01/09/19 17:22 Potassium 4.0 mmol/L (3.5-5.1) 01/09/19 17:22 Chloride 105 mmol/L (98-107) 01/09/19 17:22 Carbon Dioxide 22 mmol/L (21-32) 01/09/19 17:22 Anion Gap 9.0 (3-11) 01/09/19 17:22 BUN 17 mg/dl (7-18) 01/09/19 17:22 Creatinine 1.98 mg/dl (0.6-1.4) H 01/09/19 17:22 Est Cr Clr Drug Dosing 54.1 ml/min 01/09/19 17:22 Est GFR ( Amer) 47.2 01/09/19 17:22 Est GFR (Non-Af Amer) 40.8 01/09/19 17:22 BUN/Creatinine Ratio 8.5 (10-20) L 01/09/19 17:22 Glucose 167 mg/dl (70-99) H 01/09/19 17:22 Calcium 9.6 mg/dl (8.5-10.1) 01/09/19 17:22 Magnesium 2.2 mg/dl (1.8-2.4) 01/09/19 17:22 Total Bilirubin 1.0 mg/dl (0.2-1) 01/09/19 17:22 AST 38 U/L (15-37) H 01/09/19 17:22 ALT 76 U/L (12-78) 01/09/19 17:22 Alkaline Phosphatase 49 U/L (45-117) 01/09/19 17:22 Total Creatine Kinase 377 U/L (39-308) H 01/09/19 17:22 Total Protein 8.6 gm/dl (6.4-8.2) H 01/09/19 17:22 Albumin 4.3 gm/dl (3.4-5.0) 01/09/19 17:22 Globulin 4.3 gm/dl (2.5-4.0) H 01/09/19 17:22 Albumin/Globulin Ratio 1.0 (0.9-2) 01/09/19 17:22 Ethyl Alcohol mg/dL < 3.0 mg/dl (0-3) 01/09/19 17:22 Code Status & VTE Plan VTE Prophylaxis Plan VTE Prophylaxis will be ordered: Yes PG Care Time/CCT Total # of Minutes Spent Total Time Spent: 55 Total Time Spent with Patient: Total time spent is greater than 50% in coordination of care (as documented) at patient's floor/unit and/or counseling patient: (1) Asthma Asthma severity: moderate Asthma persistence: persistent Asthma complication type: unspecified Qualified Code(s): J45.40 - Moderate persistent asthma, uncomplicated
[2019-01-09] MEDS ORDERED: ACETAMINOPHEN 325 MG TAB PO PRN (20:47)
[2019-01-09] MEDS ORDERED: ALBUTEROL 0.083% NEBU SOLN 3 ML VIAL NEB PRN (20:47)
[2019-01-09] MEDS ORDERED: ONDANSETRON INJ 2 MG/ML 2 ML VIAL IV PRN (20:47)
[2019-01-09] MEDS: SODIUM CHLORIDE 0.45 % 1,000 ML IV SCH (21:13)
[2019-01-09] MEDS: FLUTICASONE/SALMETEROL 100/50 (ADVAIR) 14 PUFF/1 INHALER INH SCH (21:22)
[2019-01-09] MEDS: FAMOTIDINE 20 MG TAB PO SCH (21:22)
[2019-01-09] MEDS: HEPARIN SOD 5,000 UNIT/0.5 ML VIAL SQ SCH (21:23)
[2019-01-10] MEDS: SODIUM CHLORIDE 0.45 % 1,000 ML IV SCH ×2 (04:18→10:48)
[2019-01-10 05:50] LABS: Amphetamines+Metham, Urine Pos (Neg); Barbiturates, Urine Neg (Neg); Benzodiazepine, Urine Pos (Neg); Cocaine, Urine Neg (Neg); MDMA (Ecstacy), Urine Pos (Neg); Methadone, Urine Neg (Neg); Opiate, Urine Pos (Neg); Phencyclidine, Urine Neg (Neg)
[2019-01-10] MEDS: HEPARIN SOD 5,000 UNIT/0.5 ML VIAL SQ SCH ×2 (06:00→14:05)
[2019-01-10 07:06] LABS: Hematocrit (blood only) 43.6 % (42-52); Mean Corpuscular Hemoglobin 31.3 pg (25-34); Mean Corpuscular Hgb Conc 34.4 g/dL (32-36); Mean Platelet Volume 9.1 fL (7.4-10.4); Platelet Count 252 K/uL (130-400); RDW Standard Deviation 46.9 fL (36.4-46.3); Red Blood Count 4.79 M/uL (4.7-6.1); White Blood Count 10.44 K/uL (4.8-10.8)
[2019-01-10 07:44] LABS: BUN Creatinine Ratio 11.9 (10-20); Calcium 8.2 mg/dl (8.5-10.1); Est GFR (African American) 81.6; Est GFR (Non-African American) 70.4
[2019-01-10] MEDS: FLUTICASONE/SALMETEROL 100/50 (ADVAIR) 14 PUFF/1 INHALER INH SCH (08:25)
[2019-01-10] MEDS: FAMOTIDINE 20 MG TAB PO SCH (08:26)
[2019-01-10 08:52] LABS: Potassium 3.6 mmol/L (3.5-5.1)
[2019-01-10] MEDS ORDERED: INFLUENZA VIRUS QUAD VACCINE 0.5 ML SYR IM ONE (09:00)
[2019-01-10] MEDS ORDERED: INFLUENZA ADMINISTRATION CHARGE ONE (09:00)
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
[2019-01-13 16:44] LABS: 7-Aminoclonaz, Confirm NEGATIVE NG/ML (CUTOFF=25); Amphetamine Urine, Confirm 3320 NG/ML (CUTOFF=250); Codeine Urine NEGATIVE NG/ML (CUTOFF=50); Hydro-Alp Ur, GC/MS NEGATIVE NG/ML (CUTOFF=25); Hydrocodone Urine NEGATIVE NG/ML (CUTOFF=50); Hydromor Urine NEGATIVE NG/ML (CUTOFF=50); Hydroxyethylflurazepam, Conf NEGATIVE NG/ML (CUTOFF=50); Hydroxytriazolam NEGATIVE NG/ML (CUTOFF=50); Lorazepam, Ur GC/MS NEGATIVE NG/ML (CUTOFF=50); Methamphetamine, Ur Confirm 19400 NG/ML (CUTOFF=250); Morphine Urine 178 NG/ML (CUTOFF=50); Nordiazepam, Confirm 132 NG/ML (CUTOFF=50); Norhydrocodone Conf Ur NEGATIVE NG/ML (CUTOFF=50); Noroxycodone Urine NEGATIVE NG/ML (CUTOFF=50); Oxazepam Ur, GC/MS NEGATIVE NG/ML (CUTOFF=50); Oxycodone Urine NEGATIVE NG/ML (CUTOFF=50); Oxymorph Urine NEGATIVE NG/ML (CUTOFF=50); Temazepam, Confirm 77 NG/ML (CUTOFF=50)
== END 2019-01-10 15:59 | disposition home or self-care (01) | DRG 917 ==
LOC: ED 16:53 → 2W 19:52 → SUATTDRO 19:52 → INTOOBSV 19:52 → 2W 20:39
DX: Z91.048 Other nonmedicinal substance allergy status; F15.20 Other stimulant dependence, uncomplicated; J45.909 Unspecified asthma, uncomplicated; G92 Toxic encephalopathy; F11.20 Opioid dependence, uncomplicated; T40.1X1A Poisoning by heroin, accidental (unintentional), initial encounter; B19.20 Unspecified viral hepatitis C without hepatic coma; R61 Generalized hyperhidrosis; N17.9 Acute kidney failure, unspecified; Z79.899 Other long term (current) drug therapy; Z79.51 Long term (current) use of inhaled steroids; F17.210 Nicotine dependence, cigarettes, uncomplicated; R73.9 Hyperglycemia, unspecified; D72.829 Elevated white blood cell count, unspecified